=== PATIENT | male | born 1940 | race Caucasian/White ===

== ENCOUNTER 2024-08-07 16:00 | Outpatient (CLI) | payer MEDICARE, SELFPAY ==
[2024-08-07 10:01] LABS: Abs Immature Grans 0.03 10^3/uL (0.0-0.06); Absolute Basophil Count 0.03 10^3/uL (0.0-0.2); Absolute Eosinophil Count 0.17 10^3/uL (0.0-0.7); Absolute Lymphocyte Count 1.63 10^3/uL (1.2-3.4); Absolute Monocyte Count 0.54 10^3/uL (0.1-0.8); Basophils % 0.4 %; Eosinophils % 2.5 %; HCT 36.6 % (40.0-50.0); Immature Grans % 0.4 %; Lymphocytes % 24.3 %; MCH 31.5 pg (27.0-33.0); MCHC 32.8 % (32.0-36.0); MCV 96 fL (80-95); MPV 8.4 fL (8.0-11.0); Monocytes % 8.1 %; Neutrophils % 64.3 %; Platelet Count 220 10^3/uL (130-400); RBC 3.81 10^6/uL (4.36-5.78); RDW 13.9 % (11.8-14.1); RDW-SD 48.9 fL
[2024-08-07 10:22] LABS: ALT 14 U/L (16-63); AST 16 U/L (15-37); Alkaline Phosphatase 120 U/L (46-116); BUN 35 mg/dL (7-18); CREATININE 1.6 mg/dL (0.70-1.30); Calcium 9.1 mg/dL (8.5-10.1); Chloride 109 mmol/L (98-107); Estimated GFR 43.02 (mL/min/1.73m2); Glucose 126 mg/dL (74-106); Potassium 4.1 mmol/L (3.5-5.1); Sodium 143 mmol/L (136-145); Total Protein 7.3 g/dL (6.4-8.2)
== END 2024-08-07 16:01 | disposition home or self-care (01) ==
LOC: LBO 16:02
PROVIDERS: Visit Provider Internal Medicine
DX: C61 Malignant neoplasm of prostate (principal); C79.51 Secondary malignant neoplasm of bone
CPT/HCPCS: 36415; 80053; 85025

== ENCOUNTER 2024-09-18 04:32 | Outpatient (CLI) | payer MEDICARE, SELFPAY ==
[2024-09-18 09:41] LABS: Abs Immature Grans 0.04 10^3/uL (0.0-0.06); Absolute Basophil Count 0.03 10^3/uL (0.0-0.2); Absolute Eosinophil Count 0.26 10^3/uL (0.0-0.7); Absolute Lymphocyte Count 1.41 10^3/uL (1.2-3.4); Absolute Monocyte Count 0.53 10^3/uL (0.1-0.8); Absolute Neutrophil Count 5.69 10^3/uL (1.2-6.7); Basophils % 0.4 %; Eosinophils % 3.3 %; HCT 33.4 % (40.0-50.0); HGB 10.7 g/dL (13.5-17.5); Immature Grans % 0.5 %; Lymphocytes % 17.7 %; MCH 30.6 pg (27.0-33.0); MCV 95 fL (80-95); MPV 8.1 fL (8.0-11.0); Monocytes % 6.7 %; Neutrophils % 71.4 %; Platelet Count 277 10^3/uL (130-400); RDW 13.9 % (11.8-14.1); RDW-SD 48.5 fL; WBC 7.96 10^3/uL (4.4-10.8)
[2024-09-18 09:57] LABS: ALT 14 U/L (16-63); AST 12 U/L (15-37); Albumin 2.5 g/dL (3.4-5.0); Alkaline Phosphatase 111 U/L (46-116); Anion Gap 4.5 mmol/L (3-11); BUN 23 mg/dL (7-18); Bilirubin, Total 0.41 mg/dL (0.2-1.0); CO2 28.5 mmol/L (21.0-32.0); CREATININE 1.4 mg/dL (0.70-1.30); Calcium 8.9 mg/dL (8.5-10.1); Chloride 109 mmol/L (98-107); Estimated GFR 50.49 (mL/min/1.73m2); Glucose 123 mg/dL (74-106); Potassium 3.9 mmol/L (3.5-5.1); Sodium 142 mmol/L (136-145); Total Protein 6.8 g/dL (6.4-8.2)
[2024-09-19 15:49] LABS: PSA, Ultrasensitive 0.73 ng/mL (<= 7.2)
[2024-09-22 10:33] LABS: Testosterone, Total 14 ng/dL (240-950)
== END 2024-09-18 04:33 | disposition home or self-care (01) ==
LOC: LBO 04:33
PROVIDERS: Visit Provider Internal Medicine
DX: C61 Malignant neoplasm of prostate (principal); C79.51 Secondary malignant neoplasm of bone
CPT/HCPCS: 36415; 80053; 84153; 84403; 85025